=== PATIENT | female | born 1970 | race American Indian/Alaskan Native ===

== ENCOUNTER 2020-06-17 09:43 | Emergency (ER) | payer SELFPAY ==
[2020-06-17 10:11] VITALS: BP 170/96
--- NOTE | 2020-06-17 11:52 | Emergency Department Report ---
ED General Adult HPI - General Chief complaint: Skin/Abscess/Foreign Body Stated complaint: RT ARMPIT PAIN Time Seen by Provider: 06/17/20 11:39 Source: patient Mode of arrival: Ambulatory Limitations: No Limitations - History of Present Illness Initial comments: 50-year-old -Sw[place] female patient presents with complaints of abscess to the right arm x1 week. Patient states she has had multiple bumps pop up in the right axilla for the past 2 weeks. She states the abscess drained a few days ago and is mildly painful. She denies any redness, swelling, numbness/tingling/weakness in her arm, fever/chills/sweats. She states history of diabetes and hypertension and is noncompliant with her medications. She also denies prior history of hidradenitis suppurativa - Related Data Previous Rx's Medication Instructions Recorded Last Taken Type Doxycycline Monohydrate 100 mg PO BID 10 Days #20 capsule 06/17/20 Unknown Rx [Doxycycline Monohydrate CAP] Metformin HCl [Metformin HCl ER] 1,000 mg PO QDAY 30 Days #60 06/17/20 Unknown Rx tab.er.24h lisinopriL [Zestril TAB] 20 mg PO QDAY 30 Days #30 tablet 06/17/20 Unknown Rx Allergies Allergy/AdvReac Type Severity Reaction Status Date / Time Penicillins Allergy Unknown Verified 06/17/20 10:08 ED Review of Systems ROS: Stated complaint: RT ARMPIT PAIN Other details as noted in HPI Constitutional: denies: chills, fever, malaise ENT: denies: ear pain Respiratory: denies: cough, shortness of breath Gastrointestinal: denies: vomiting Genitourinary: denies: urgency, dysuria, frequency, hematuria Neurological: denies: headache, weakness, numbness, paresthesias, confusion, abnormal gait Hematological/Lymphatic: denies: easy bleeding, swollen glands ED Past Medical Hx - Past Medical History Previous Medical History?: Yes Hx Hypertension: Yes Hx Diabetes: Yes - Surgical History Past Surgical History?: No - Social History Smoking Status: Unknown if ever smoked Substance Use Type: None - Medications Home Medications: Home Medications Medication Instructions Recorded Confirmed Last Taken Type Doxycycline Monohydrate 100 mg PO BID 10 Days #20 capsule 06/17/20 Unknown Rx [Doxycycline Monohydrate CAP] Metformin HCl [Metformin HCl ER] 1,000 mg PO QDAY 30 Days #60 06/17/20 Unknown Rx tab.er.24h lisinopriL [Zestril TAB] 20 mg PO QDAY 30 Days #30 tablet 06/17/20 Unknown Rx ED Physical Exam - General Limitations: No Limitations General appearance: alert, in no apparent distress, obese - Head Head exam: Present: atraumatic, normocephalic - Eye Eye exam: Present: normal appearance - Neck Neck exam: Present: normal inspection - Respiratory Respiratory exam: Present: normal lung sounds bilaterally. Absent: respiratory distress - Cardiovascular Cardiovascular Exam: Present: regular rate, normal rhythm. Absent: systolic murmur, diastolic murmur, rubs, gallop - GI/Abdominal GI/Abdominal exam: Present: soft, normal bowel sounds - Extremities Exam Extremities exam: Present: full ROM - Neurological Exam Neurological exam: Present: alert, oriented X3, normal gait - Psychiatric Psychiatric exam: Present: normal affect, normal mood - Skin Skin exam: Present: warm, dry, intact, normal color, other (Multiple nodules noted to right arm. Without erythema or induration. Small 2 cm round mildly tender nodule noted with scab overlying no fluctuance is noted). Absent: rash ED Course Vital Signs 06/17/20 10:09 Temperature 98 F Pulse Rate 92 H Respiratory 16 Rate Blood Pressure 170/96 [Right] O2 Sat by Pulse 99 Oximetry ED Medical Decision Making - Medical Decision Making 50-year-old -[place] female patient presents with complaints of abscess to the right arm x1 week. Patient states she has had multiple bumps pop up in the right axilla for the past 2 weeks. She states the abscess drained a few days ago and is mildly painful. She denies any redness, swelling, numbness/tingling/weakness in her arm, fever/chills/sweats. She states history of diabetes and hypertension and is noncompliant with her medications. She also denies prior history of hidradenitis suppurativa Prescription for Doxy given. Refills of Metformin and lisinopril given. P atient informed to follow-up with her primary care doctor concerning possible hidradenitis suppurativa and her hypertension and diabetes. She is well- appearing and stable for discharge home. Strict return precautions were discussed in detail with patient who verbalized understanding peer Critical care attestation.: If time is entered above; I have spent that time in minutes in the direct care of this critically ill patient, excluding procedure time. ED Disposition Clinical Impression: Hidradenitis suppurativa, Uncontrolled hypertension, Noncompliance with diabetes treatment Disposition: TO HOME OR SELFCARE Is pt being admited?: No Condition: Stable Instructions: Hidradenitis Suppurativa, Hypertension (ED), Hypertension, Adult Prescriptions: Doxycycline Monohydrate [Doxycycline Monohydrate CAP] 100 mg PO BID 10 Days #20 capsule Metformin HCl [Metformin HCl ER] 1,000 mg PO QDAY 30 Days #60 tab.er.24h lisinopriL [Zestril TAB] 20 mg PO QDAY 30 Days #30 tablet Referrals: [facility] [Provider Group] - 3-5 Days
== END 2020-06-17 11:59 | disposition home or self-care (01) ==
LOC: ED 09:43
DX: L73.2 Hidradenitis suppurativa (principal); I10 Essential (primary) hypertension; E11.9 Type 2 diabetes mellitus without complications; Z88.0 Allergy status to penicillin
CPT/HCPCS: 99282

== ENCOUNTER 2021-04-23 15:17 | Emergency (ER) | payer SELFPAY ==
[2021-04-23] MEDS ORDERED: DICYCLOMINE 20 MG/2 ML INJ IM ONE (16:51)
[2021-04-23] MEDS ORDERED: ONDANSETRON 4 MG/2 ML INJ IV ONE (16:51)
[2021-04-23] MEDS ORDERED: SODIUM CHLORIDE 0.9% 1000 ML 1,000 ML IV ONE ×2 (16:51→18:00)
[2021-04-23] MEDS ORDERED: FAMOTIDINE 20 MG/2 ML INJ IV ONE (16:51)
[2021-04-23] MEDS ORDERED: MORPHINE 4 MG/1 ML INJ IV ONE (16:52)
[2021-04-23 17:07] LABS: Hematocrit 41.1 % (30.3-42.9); Hemoglobin 14.1 gm/dl (10.1-14.3); Mean Corpuscular HGB Conc 34 % (30-34); Mean Corpuscular Volume 83 fl (79-97); Platelet Count 361 K/mm3 (140-440); Red Blood Count 4.95 M/mm3 (3.65-5.03); Red Cell Distribution Width 13.9 % (13.2-15.2)
--- NOTE | 2021-04-23 17:32 | Emergency Department Report ---
ED N/V/D HPI - General Chief complaint: Nausea/Vomiting/Diarrhea Stated complaint: NAUSEA, NEUROPATHY PAIN, HEADACHE Time Seen by Provider: 04/23/21 16:48 Source: patient Mode of arrival: Ambulatory Limitations: No Limitations - History of Present Illness Initial comments: Patient is a 51-year-old F [place] female with a past medical history of diabetes and neuropathy who is complaining of nausea vomiting diarrhea the last week. Patient states she is been unable to keep anything down. Mild diarrhea. States there is been no blood in her vomit or stool. Complaining of some crampy colicky left lower quadrant pain. Patient also states she has pain in her left arm and left leg which is consistent with her neuropathy she has had this for quite some time. Denies any trauma. States there is no fevers chills cough cold or congestion. - Related Data Home Medications Medication Instructions Recorded Confirmed Last Taken Doxycycline Monohydrate 15 mg PO BID 04/23/21 Unknown [Doxycycline Monohydrate CAP] Insulin Detemir [Levemir Flextouch] 15 unit SQ 04/23/21 04/23/21 Previous Rx's Medication Instructions Recorded Last Taken Type Metformin HCl [Metformin HCl ER] 1,000 mg PO QDAY 30 Days #60 06/17/20 Unknown Rx tab.er.24h lisinopriL [Zestril TAB] 20 mg PO QDAY 30 Days #30 tablet 06/17/20 Unknown Rx HYDROcodone/APAP 5-325 [[place] 1 each PO Q6HR PRN #14 tablet 04/23/21 Unknown Rx 5/325] Ibuprofen [Motrin 600 MG tab] 600 mg PO Q8H PRN #20 tablet 04/23/21 Unknown Rx Ondansetron [Zofran Odt] 4 mg PO Q8HR #10 tab.rapdis 04/23/21 Unknown Rx Allergies Allergy/AdvReac Type Severity Reaction Status Date / Time Penicillins Allergy Unknown Verified 04/23/21 15:27 ED Review of Systems ROS: Stated complaint: NAUSEA, NEUROPATHY PAIN, HEADACHE Other details as noted in HPI Comment: All other systems reviewed and negative ED Past Medical Hx - Past Medical History Hx Hypertension: Yes Hx Diabetes: Yes - Social History Smoking Status: Unknown if ever smoked Substance Use Type: None - Medications Home Medications: Home Medications Medication Instructions Recorded Confirmed Last Taken Type Metformin HCl [Metformin HCl ER] 1,000 mg PO QDAY 30 Days #60 06/17/20 04/23/21 Unknown Rx tab.er.24h lisinopriL [Zestril TAB] 20 mg PO QDAY 30 Days #30 tablet 06/17/20 04/23/21 Unknown Rx Doxycycline Monohydrate 15 mg PO BID 04/23/21 Unknown History [Doxycycline Monohydrate CAP] HYDROcodone/APAP 5-325 [[place] 1 each PO Q6HR PRN #14 tablet 04/23/21 Unknown Rx 5/325] Ibuprofen [Motrin 600 MG tab] 600 mg PO Q8H PRN #20 tablet 04/23/21 Unknown Rx Insulin Detemir [Levemir Flextouch] 15 unit SQ 04/23/21 04/23/21 History Ondansetron [Zofran Odt] 4 mg PO Q8HR #10 tab.rapdis 04/23/21 Unknown Rx ED Physical Exam - General Limitations: No Limitations General appearance: alert, in no apparent distress - Head Head exam: Present: atraumatic, normocephalic - Eye Eye exam: Present: normal appearance, PERRL, EOMI - ENT ENT exam: Present: mucous membranes moist - Neck Neck exam: Present: normal inspection - Respiratory Respiratory exam: Present: normal lung sounds bilaterally. Absent: respiratory distress, wheezes, rales, rhonchi - Cardiovascular Cardiovascular Exam: Present: regular rate, normal rhythm, normal heart sounds. Absent: systolic murmur, diastolic murmur, rubs, gallop - GI/Abdominal GI/Abdominal exam: Present: soft, tenderness (LLQ), normal bowel sounds. Absent: distended, guarding, rebound, rigid, mass - Extremities Exam Extremities exam: Present: normal inspection - Back Exam Back exam: Present: normal inspection - Neurological Exam Neurological exam: Present: alert, oriented X3 - Psychiatric Psychiatric exam: Present: normal affect, normal mood - Skin Skin exam: Present: warm, dry, intact, normal color. Absent: rash ED Course Vital Signs 04/23/21 20:01 Temperature 98 F ED Medical Decision Making - Lab Data Result diagrams: 04/23/21 16:54 04/23/21 16:54 - Radiology Data CT ABDOMEN AND PELVIS WITH CONTRAST INDICATION / CLINICAL INFORMATION: LLQ pain NVD. TECHNIQUE: Axial CT images were obtained through the abdomen and pelvis after IV contrast. All CT scans at this location are performed using CT dose reduction for ALARA by means of automated e xposure control. COMPARISON: None available. FINDINGS: LOWER CHEST: No significant abnormality. LIVER: No significant abnormality. GALLBLADDER: Mildly distended. BILE DUCTS: No significant abnormality. PANCREAS: No significant abnormality. SPLEEN: No significant abnormality. ADRENALS: No significant abnormality. RIGHT KIDNEY / URETER: No significant abnormality. LEFT KIDNEY / URETER: No significant abnormality. STOMACH / SMALL BOWEL: No significant abnormality. COLON: No significant abnormality. APPENDIX: No significant abnormality. PERITONEUM: No free fluid. No free air. No fluid collection. LYMPH NODES: No significant adenopathy. AORTA / ARTERIES: Mild atherosclerotic calcification without acute abnormality. IVC / VEINS: No significant abnormality. URINARY BLADDER: No significant abnormality. REPRODUCTIVE ORGANS: There is a 8.6 x 12.9 x 13.1 cm centrally hypoattenuating lesion within the uterine fundus with central hemorrhage, favored represent a large, necrotic uterine fibroid with internal hemorrhage. This lesion appears to be distinct from the endometrial cavity which is normal in thickness. ADDITIONAL FINDINGS: Fat-containing periumbilical hernia. SKELETAL SYSTEM: No significant abnormality. IMPRESSION: 1. Large hypoattenuating lesion within the uterine fundus as detailed above. Findings are favored to represent a necrotic uterine fibroid with central hemorrhage within the area of necrosis. Lesion does appear to be separate from the endometrium. Recommend gynecologic follow- up/evaluation. Given the central hyperattenuating area of hematoma, acute hemorrhage into this lesion cannot be excluded. Signer Name: Murphy Terrazas MD Signed: 04/23/2021 9:43 PM Workstation Name: [id number] - Medical Decision Making Patient is a 51-year-old F [place] female presenting with nausea vomiting diarrhea. Patient is laboratory studies were unremarkable. She was hydrated given antiemetics and is feeling much improved. CT shows a large fibroid with some central necrosis and possible bleeding. Hemoglobin is within normal limit s. Spoke with Dr. Davis with [facility] and they states they will see her as an outpatient. Patient given medication for symptomatic relief and be discharged home. Critical care attestation.: If time is entered above; I have spent that time in minutes in the direct care of this critically ill patient, excluding procedure time. ED Disposition Clinical Impression: Acute gastroenteritis, Uterine fibroid Disposition: HOME / SELF CARE / HOMELESS Is pt being admited?: No Does the pt Need Aspirin: No Condition: Stable Instructions: Uterine Fibroids, Viral Gastroenteritis, Adult Referrals: DUSTIN DAVIS MD [Staff Physician] - 3-5 Days Time of Disposition: 22:38
[2021-04-23 17:46] LABS: Albumin 3.8 g/dL (3.9-5); Calcium 10.3 mg/dL (8.4-10.2)
[2021-04-23 17:53] LABS: Platelet Estimate Consistent w Auto; RBC Morphology Normal; Total Cells Counted 100
--- NOTE | 2021-04-23 21:47 | Cat Scan Report ---
CT ABDOMEN AND PELVIS WITH CONTRAST INDICATION / CLINICAL INFORMATION: LLQ pain NVD. TECHNIQUE: Axial CT images were obtained through the abdomen and pelvis after IV contrast. All CT sc ans at this location are performed using CT dose reduction for ALARA by means of automated exposure c ontrol. COMPARISON: None available. FINDINGS: LOWER CHEST: No significant abnormality. LIVER: No significant abnormality. GALLBLADDER: Mildly distended. BILE DUCTS: No significant abnormality. PANCREAS: No significant abnormality. SPLEEN: No significant abnormality. ADRENALS: No significant abnormality. RIGHT KIDNEY / URETER: No significant abnormality. LEFT KIDNEY / URETER: No significant abnormality. STOMACH / SMALL BOWEL: No significant abnormality. COLON: No significant abnormality. APPENDIX: No significant abnormality. PERITONEUM: No free fluid. No free air. No fluid collection. LYMPH NODES: No significant adenopathy. AORTA / ARTERIES: Mild atherosclerotic calcification without acute abnormality. IVC / VEINS: No significant abnormality. URINARY BLADDER: No significant abnormality. REPRODUCTIVE ORGANS: There is a 8.6 x 12.9 x 13.1 cm centrally hypoattenuating lesion within the uter ine fundus with central hemorrhage, favored represent a large, necrotic uterine fibroid with internal hemorrhage. This lesion appears to be distinct from the endometrial cavity which is normal in thickn ess. ADDITIONAL FINDINGS: Fat-containing periumbilical hernia. SKELETAL SYSTEM: No significant abnormality. IMPRESSION: 1. Large hypoattenuating lesion within the uterine fundus as detailed above. Findings are favored to represent a necrotic uterine fibroid with central hemorrhage within the area of necrosis. Lesion bailey s appear to be separate from the endometrium. Recommend gynecologic follow-up/evaluation. Given the c entral hyperattenuating area of hematoma, acute hemorrhage into this lesion cannot be excluded. Signer Name: Murphy Terrazas MD Signed: 04/23/2021 9:43 PM Workstation Name: [id number]
[2021-04-23 22:54] VITALS: BP 152/89
== END 2021-04-23 22:53 | disposition home or self-care (01) ==
LOC: ED 15:17
DX: K52.9 Noninfective gastroenteritis and colitis, unspecified (principal); D25.9 Leiomyoma of uterus, unspecified; I10 Essential (primary) hypertension; E11.9 Type 2 diabetes mellitus without complications; Z88.0 Allergy status to penicillin; Z79.899 Other long term (current) drug therapy; Z79.84 Long term (current) use of oral hypoglycemic drugs
CPT/HCPCS: 36415; 74177; 80053; 83690; 85007; 85025; 96361; 96372; 96374; 96375; 99284; J0500; J2270; J2405; J7030; Q9967